=== PATIENT | male | born 1980 | race Caucasian/White ===

== ENCOUNTER 2021-03-13 12:22 | Day surgery (SDCO) | payer OTHER ==
[~2021-03-13] VITALS: Ht 180 cm; Wt 102.2 kg
[~2021-03-13 12:22] MED LIST: ALLERCLEAR10 MG PO; ASPIRIN EC81 MG PO; NORCO 5-325 TA1 EACH PO; PRILOSEC20 MG PO; VITAMIN D1000 UNI1 PO; ZANTAC150 MG PO; ZESTRIL30 MG PO
[2021-03-13 13:04] LABS: BASOPHIL 0.7 % (0-2); EOSINOPHIL 1.5 % (0-5); HCT 47.2 % (42.0-52.0); HGB 16.4 g/dl (13.2-18.0); LYMPHOCYTE 37.1 % (15-48); MCHC 34.7 g/dL (32.0-36.0); MCV 83.5 fL (78.0-100.0); MONOCYTE 5.9 % (0-12); MPV 10.7 fL (6.0-9.5); NEUTROPHIL 54.1 % (41-80); NRBC 0; PLT 218 K/uL (150-400); RBC 5.65 M/uL (4.70-6.00); RDW 13.5 % (11.5-14.0); WBC 8.2 K/uL (4.0-10.5)
[2021-03-13 13:20] LABS: ALBUMIN 3.8 g/dL (3.4-5.0); BILIRUBIN - TOTAL 0.4 mg/dL (0.2-1.0); BUN/CREAT RATIO (CALC) 30.6 RATIO; CREATININE 0.62 mg/dL (0.67-1.17); GLOBULIN (CALCULATION) 3.3 g/dL; POTASSIUM 3.9 mmol/L (3.5-5.1); TOTAL PROTEIN 7.1 g/dL (6.4-8.2)
[2021-03-13 18:29] LABS: CORONAVIRUS 2019 SARS-COV-2 NEGATIVE (NEGATIVE); INFLUENZA A NAA NEGATIVE (NEGATIVE)
[2021-03-13] MEDS ORDERED: ADDERALL XR 3030 MG PO (18:32)
[2021-03-13] MEDS ORDERED: AMLODIPINE BESY10 MG PO (18:33)
[2021-03-13] MEDS ORDERED: BENAZEPRIL HCL20 MG PO (18:33)
[2021-03-14 03:44] LABS: BASOPHIL 0.7 % (0-2); EOSINOPHIL 2.2 % (0-5); HCT 49.9 % (42.0-52.0); LYMPHOCYTE 51.5 % (15-48); MCH 29.1 pg (25.0-31.0); MCHC 34.1 g/dL (32.0-36.0); MCV 85.3 fL (78.0-100.0); MPV 10.5 fL (6.0-9.5); NEUTROPHIL 37.8 % (41-80); NRBC 0; PLT 221 K/uL (150-400); RBC 5.85 M/uL (4.70-6.00); RDW 13.7 % (11.5-14.0); WBC 8.6 K/uL (4.0-10.5)
[2021-03-14 04:23] LABS: ALBUMIN 3.9 g/dL (3.4-5.0); BILIRUBIN - TOTAL 0.4 mg/dL (0.2-1.0); BUN/CREAT RATIO (CALC) 22.1 RATIO; CREATININE 0.68 mg/dL (0.67-1.17); GLOBULIN (CALCULATION) 3.3 g/dL; TOTAL PROTEIN 7.2 g/dL (6.4-8.2)
== END 2021-03-14 12:48 | disposition other institution (70) ==
LOC: FER 12:22 → FTCU 17:22
PROVIDERS: Physician Assistant; ADMIT Family Medicine
DX: R07.9 Chest pain, unspecified (principal); I20.9 Angina pectoris, unspecified; I11.9 Hypertensive heart disease without heart failure; E11.65 Type 2 diabetes mellitus with hyperglycemia; E78.5 Hyperlipidemia, unspecified; F17.200 Nicotine dependence, unspecified, uncomplicated; Z20.822 Contact with and (suspected) exposure to COVID-19; Z82.49 Family history of ischemic heart disease and other diseases of the circulatory system; Z79.899 Other long term (current) drug therapy
CPT/HCPCS: 36415; 71045; 80053; 80061; 84443; 84484; 85025; 93005; G0378; J1650; U0002